=== PATIENT | female | born 1935 | race Caucasian/White ===

== ENCOUNTER → 2017-04-03 | Outpatient (CLI) | payer MEDICARE ==
--- NOTE | 2017-04-03 15:10 | RADIOLOGY REPORT PS360 ---
[id number] VIEWS HISTORY: RT SHOULDER PAIN ORDERING PHYSICIAN: Harjinder Fuentes MD PATIENT AGE: 81 years COMPARISON: None FINDINGS: There are mild osteoarthritic changes of the acromioclavicular joint and glenohumeral joint with mild osteophyte formation at both areas. No fracture or dislocation. No lytic or blastic change. 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
== END ==
LOC: RAD 14:41
DX: M25.511 Pain in right shoulder (principal)